=== PATIENT | female | born 1995 | race American Indian/Alaskan Native ===

== ENCOUNTER 2019-01-30 11:23 | Emergency (ER) | payer SELFPAY ==
[2019-01-30 11:37] VITALS: BP 122/80
--- NOTE | 2019-01-30 11:43 | Emergency Department Report ---
Blank Doc - Documentation Documentation: painful fluctuating right brest mass for 4 months. no help at [facility] or other [facility]. worse with menses. no sweats or discharge.
--- NOTE | 2019-01-30 12:39 | Emergency Department Report ---
ED General Adult HPI - General Chief complaint: Chest Pain Stated complaint: CHEST PAIN/LUMP IN BREAST Time Seen by Provider: 01/30/19 11:39 Source: patient Mode of arrival: Ambulatory Limitations: No Limitations - History of Present Illness Initial comments: Patient is a 23-year-old female who is complaining of right breast mass for the past 4 months. Patient states the medicines have become more tender and more swollen over the last several months. Patient seen at outside hospitals and she was told to just rest and that they should go away and states that she was never referred to anyone to have any imaging or especially care. Patient denies any bloody or purulent drainage from the nipples. Patient denies any fevers chills nausea vomiting. Patient states the pain is aching in nature and 6 out of 10 in severity Severity scale (0 -10): 0 - Related Data Previous Rx's Medication Instructions Recorded Last Taken Type Acetaminophen/Codeine [Tylenol #3] 1 tab PO QHS PRN #15 tab 04/13/15 Unknown Rx Ibuprofen [Motrin] 800 mg PO Q8H PRN #21 tablet 04/13/15 Unknown Rx Ibuprofen [Motrin] 800 mg PO Q8HR PRN #20 tablet 01/30/19 Unknown Rx traMADol [Ultram] 50 mg PO Q6HR PRN #12 tablet 01/30/19 Unknown Rx Allergies Allergy/AdvReac Type Severity Reaction Status Date / Time No Known Allergies Allergy Verified 01/30/19 11:25 ED Review of Systems ROS: Stated complaint: CHEST PAIN/LUMP IN BREAST Other details as noted in HPI Comment: All other systems reviewed and negative ED Past Medical Hx - Past Medical History Previous Medical History?: No - Surgical History Past Surgical History?: No - Social History Smoking Status: Current Every Day Smoker Substance Use Type: Marijuana - Medications Home Medications: Home Medications Medication Instructions Recorded Confirmed Last Taken Type Acetaminophen/Codeine [Tylenol #3] 1 tab PO QHS PRN #15 tab 04/13/15 Unknown Rx Ibuprofen [Motrin] 800 mg PO Q8H PRN #21 tablet 04/13/15 Unknown Rx Ibuprofen [Motrin] 800 mg PO Q8HR PRN #20 tablet 01/30/19 Unknown Rx traMADol [Ultram] 50 mg PO Q6HR PRN #12 tablet 01/30/19 Unknown Rx ED Physical Exam - General Limitations: No Limitations General appearance: alert, in no apparent distress - Head Head exam: Present: atraumatic, normocephalic - Eye Eye exam: Present: normal appearance - ENT ENT exam: Present: mucous membranes moist - Neck Neck exam: Present: normal inspection - Respiratory Respiratory exam: Present: normal lung sounds bilaterally. Absent: respiratory distress - Cardiovascular Cardiovascular Exam: Present: regular rate, normal rhythm. Absent: systolic murmur, diastolic murmur, rubs, gallop - GI/Abdominal GI/Abdominal exam: Present: soft, normal bowel sounds. Absent: distended, tenderness, guarding, rebound - Extremities Exam Extremities exam: Present: normal inspection - Back Exam Back exam: Present: normal inspection - Neurological Exam Neurological exam: Present: alert, oriented X3 - Psychiatric Psychiatric exam: Present: normal affect, normal mood - Skin Skin exam: Present: warm, dry, intact, normal color, other (loom fixer apprentice was present during breast exam. Patient's right breast shows a group of firm nodularity underneath the skin at the 12 o'clock position as well as another small 1 cm area of nodularity in the non-o'clock position. There is no overlying erythema or induration to the breasts.). Absent: rash ED Course Vital Signs 01/30/19 01/30/19 11:34 11:47 Temperature 98.2 F Pulse Rate 69 Respiratory 16 15 Rate Blood Pressure 122/80 O2 Sat by Pulse 100 Oximetry ED Medical Decision Making - Medical Decision Making Patient will be given pain meds for symptomatic relief will be referred to our breast surgeon Dr. May Critical care attestation.: If time is entered above; I have spent that time in minutes in the direct care of this critically ill patient, excluding procedure time. ED Disposition Clinical Impression: Breast mass Disposition: DC-01 TO HOME OR SELFCARE Is pt being admited?: No Does the pt Need Aspirin: No Condition: Stable Referrals: EJ MAY MD [Staff Physician] - 3-5 Days Time of Disposition: 12:39
== END 2019-01-30 12:44 | disposition home or self-care (01) ==
LOC: ED 11:23
DX: N63.10 Unspecified lump in the right breast, unspecified quadrant (principal); F17.200 Nicotine dependence, unspecified, uncomplicated; F12.10 Cannabis abuse, uncomplicated
CPT/HCPCS: 93005; 93010

== ENCOUNTER 2020-02-05 11:06 | Emergency (ER) | payer SELFPAY ==
--- NOTE | 2020-02-05 11:33 | Emergency Department Report ---
Blank Doc - Documentation Documentation: 24-year-old female that presents with abd pain with n/v. This initial assessment/diagnostic orders/clinical plan/treatment(s) is/are subject to change based on patient's health status, clinical progression and re- assessment by fellow clinical providers in the ED. Further treatment and workup at subsequent clinical providers discretion. Patient/guardians urged not to elope from the ED as their condition may be serious if not clinically assessed and managed. Initial orders include: 1- Patient sent to [facility] for further evaluation and treatment 2- labs 3- UA
[2020-02-05 11:47] VITALS: BP 134/72
[2020-02-05 12:08] LABS: Eosinophils # (Auto) 0.1 K/mm3 (0.0-0.4); Eosinophils % (Auto) 1.7 % (0.0-4.3); Hematocrit 42.1 % (30.3-42.9); Hemoglobin 14.4 gm/dl (10.1-14.3); Lymphocytes # (Auto) 1.6 K/mm3 (1.2-5.4); Lymphocytes % (Auto) 42.6 % (13.4-35.0); Mean Corpuscular HGB Conc 34 % (30-34); Mean Corpuscular Volume 94 fl (79-97); Monocytes # (Auto) 0.2 K/mm3 (0.0-0.8); Monocytes % (Auto) 6.1 % (0.0-7.3); Platelet Count 257 K/mm3 (140-440); Red Blood Count 4.48 M/mm3 (3.65-5.03); Red Cell Distribution Width 13.5 % (13.2-15.2)
[2020-02-05 12:43] LABS: Alanine Aminotransferase 18 units/L (7-56); Albumin 4.6 g/dL (3.9-5); BUN/Creatinine Ratio 16; Blood Urea Nitrogen 8 mg/dL (7-17); Calcium 9.6 mg/dL (8.4-10.2); Hemolysis Index 6
[2020-02-05 13:54] LABS: Bilirubin,Urine NEG (Negative); Blood,Urine NEG (Negative); Color,Urine Straw (Yellow); Protein,Urine <15 mg/dL mg/dL (Negative); Urobilinogen,Urine < 2.0 mg/dL (<2.0)
--- NOTE | 2020-02-05 14:45 | Emergency Department Report ---
HPI - General Chief Complaint: Abdominal Pain Time Seen by Provider: 02/05/20 11:32 - HPI HPI: 24-year-old -[place] female presents to the emergency department with complaint of a one-week history of right-sided abdominal pain and some nausea without vomiting. It is been going on for the past week but the intensity will wax and wane. No obvious aggravating or alleviating factors. She denies any fever, vaginal bleeding, dysuria but does have some vaginal discharge. She has not taken anything for symptoms prior to presentation today. No recent travel or sick contacts at home. ED Past Medical Hx - Past Medical History Previous Medical History?: No - Surgical History Past Surgical History?: No - Social History Smoking Status: Current Every Day Smoker Substance Use Type: Alcohol - Medications Home Medications: Home Medications Medication Instructions Recorded Confirmed Last Taken Type Acetaminophen/Codeine [Tylenol #3] 1 tab PO QHS PRN #15 tab 04/13/15 Unknown Rx Ibuprofen [Motrin] 800 mg PO Q8H PRN #21 tablet 04/13/15 Unknown Rx Ibuprofen [Motrin] 800 mg PO Q8HR PRN #20 tablet 01/30/19 Unknown Rx traMADoL [Ultram] 50 mg PO Q6HR PRN #12 tablet 01/30/19 Unknown Rx Penicillin Vk [Veetids TAB] 250 mg PO QID #28 tablet 02/05/20 Unknown Rx ED Review of Systems ROS: Stated complaint: STOMACH AND MOUTH PAIN Other details as noted in HPI Comment: All other systems reviewed and negative Constitutional: denies: chills, fever Eyes: denies: eye pain, vision change ENT: denies: ear pain, throat pain Respiratory: denies: cough, shortness of breath Cardiovascular: denies: chest pain, palpitations Gastrointestinal: abdominal pain, nausea. denies: vomiting Genitourinary: discharge. denies: dysuria Musculoskeletal: denies: back pain, arthralgia Skin: denies: rash, lesions Neurological: denies: headache, weakness Physical Exam - Physical Exam Vital Signs: Vital Signs 02/05/20 11:09 Temperature 97.4 F L Pulse Rate 70 Respiratory 18 Rate Blood Pressure 134/72 O2 Sat by Pulse 100 Oximetry Physical Exam: GENERAL: The patient is well-developed well-nourished. HENT: Normocephalic. Atraumatic. Patient has moist mucous membranes. Posterior pharynx is clear. Patient has multiple dental caries and necrotic appearing teeth. She has some tenderness to palpation along the gumline of the lower jaw but no visible or palpable dental abscesses. No drooling or trismus. EYES: Extraocular motions are intact. NECK: Supple. Trachea is midline. CHEST/LUNGS: Clear to auscultation. There is no respiratory distress noted. HEART/CARDIOVASCULAR: Regular. There is no tachycardia. There is no murmur. ABDOMEN: Abdomen is soft. Right-sided abdominal tenderness to palpation but no guarding. Patient has normal bowel sounds. There is no abdominal distention. SKIN: Skin is warm and dry. NEURO: The patient is awake, alert, and oriented. The patient is cooperative. Normal speech. MUSCULOSKELETAL: There is no tenderness or deformity. There is no limitation range of motion. There is no evidence of acute injury. ED Course Vital Signs 02/05/20 11:09 Temperature 97.4 F L Pulse Rate 70 Respiratory 18 Rate Blood Pressure 134/72 O2 Sat by Pulse 100 Oximetry - Reevaluation(s) Reevaluation #1: The pelvic examination was done with nurse Risa at bedside to telegraph office route aide. 02/05/20 16:09 ED Medical Decision Making - Lab Data Result diagrams: 02/05/20 11:51 02/05/20 11:51 - Radiology Data Radiology results: image reviewed interpreted by me: Abdominal x-ray shows nonspecific nonobstructive bowel gas - Medical Decision Making This patient presents with right-sided abdominal pain for the past week. She also complains of some generalized dental and mouth pains. Her abdomen has some reproducible right-sided tenderness to palpation but it is mild, and the abdomen is soft, nondistended and nontoxic in appearance. Abdominal x-ray shows nonspecific nonobstructive bowel gas. Patient's labs were unremarkable including CBC, CMP urinalysis and the patient is not . A pelvic examination was done and the wet prep was negative for trichomoniasis, BV and yeast. The gonorrhea and chlamydia have not yet returned and the patient will be notified if it comes back positive. The patient has been placed on antibiotics for her dental pain and given referrals for PCP, dentist and GI. She will return to the ER with any worsening of her symptoms or any acute distress. - Differential Diagnosis UTI, PID, colitis, gastritis Critical Care Time: No Critical care attestation.: If time is entered above; I have spent that time in minutes in the direct care of this critically ill patient, excluding procedure time. ED Disposition Clinical Impression: Pain, dental, Mouth pain Abdominal pain Qualifiers: Abdominal location: unspecified location Qualified Code(s): R10.9 - Unspecified abdominal pain Disposition: TO HOME OR SELFCARE Is pt being admited?: No Condition: Stable Instructions: Dental Caries (ED), Abdominal Pain (ED), Toothache (ED) Additional Instructions: Please follow-up with a primary care physician in the next few days. I am giving you a referral for a local gastroenterology group to follow-up regarding your abdominal pains. Return to the emergency department with any worsening of your symptoms or any acute distress. Prescriptions: Penicillin Vk [Veetids TAB] 250 mg PO QID #28 tablet Referrals: CELESTINE STEVENS MD [Primary Care Provider] - 3-5 Days [facility] [Outside] - 3-5 Days [facility] [Outside] - 3-5 Days [facility] [Provider Group] - 3-5 Days Time of Disposition: 16:01
--- NOTE | 2020-02-05 15:06 | XRay Report ---
FLAT AND UPRIGHT VIEWS OF THE ABDOMEN INDICATION: Abd pain. COMPARISON: No relevant prior imaging study available. FINDINGS: No free air is identified. Bowel gas pattern is normal. No abnormal calcifications are seen. IMPRESSION: 1. No acute findings. Signer Name: Jeremy Wood MD Signed: 02/05/2020 3:01 PM Workstation Name: [id number]
== END 2020-02-05 16:19 | disposition home or self-care (01) ==
LOC: ED 11:06
DX: K08.89 Other specified disorders of teeth and supporting structures (principal); R10.9 Unspecified abdominal pain; K13.79 Other lesions of oral mucosa; F17.200 Nicotine dependence, unspecified, uncomplicated; Z79.899 Other long term (current) drug therapy
CPT/HCPCS: 36415; 74019; 80053; 81001; 83690; 84703; 85025; 87210; 87591